=== PATIENT | female | born 2000 | race Caucasian/White ===

== ENCOUNTER 2020-10-27 21:20 | Emergency (ER) | payer OTHER ==
[~2020-10-27] VITALS: Ht 157.5 cm; Wt 52.5 kg
--- NOTE | 2020-10-27 21:38 | NUR ---
RIGHT LOWER BACK PAIN
[2020-10-27] MEDS ORDERED: KETOROLAC 30 MG/1 ML ONE (21:55)
[2020-10-27] MEDS ORDERED: KETOROLAC 30 MG/1 ML IVPush ONE (22:00)
[2020-10-27] MEDS ORDERED: SODIUM CHLORIDE FLUSH 10ML SYR IVF ONE (22:00)
[2020-10-27 22:30] LABS: BASOPHILS % (AUTO) 1 % (0-1); EOSINOPHILS % (AUTO) 2 % (1-7); LYMPHOCYTES % (AUTO) 32 % (22-44); MEAN CORPUSCULAR HGB CONC 33.9 g/dL (32.4-35.8); MEAN PLATELET VOLUME 8.7 fL (7.4-10.4); MONOCYTES % (AUTO) 9 % (2-9); NEUTROPHILS % (AUTO) 56 % (42-75); PLATELET COUNT 228 x10^3/uL (130-400); RED BLOOD COUNT 4.81 x10^6/uL (3.82-5.3); RED CELL DISTRIBUTION WIDTH 13.2 % (9.6-15.2)
[2020-10-27 22:31] LABS: MD NO
[2020-10-27 22:33] LABS: MICROSCOPIC INDICATED
[2020-10-27 22:35] LABS: ALANINE AMINOTRANSFERASE 22 U/L (12-78); ALBUMIN 4.3 g/dL (3.4-5.0); ANION GAP 4 mmol/L (5-15); CALCIUM 9.3 mg/dL (8.5-10.1); CHLORIDE 107 mmol/L (98-107); CREATININE 0.99 mg/dL (0.55-1.02)
[2020-10-27 22:40] LABS: ALKALINE PHOSPHATASE 70 U/L (45-117); BILIRUBIN,TOTAL 0.3 mg/dL (0.2-1.0); TOTAL PROTEIN 8.1 g/dL (6.4-8.2)
--- NOTE | 2020-10-27 22:51 | NUR ---
PT BACK FROM CT STATES IS STILL IN PAIN HAS GONE DOWN A LITTLE. 01/23.
--- NOTE | 2020-10-27 22:54 | NUR ---
PT REQUEST EMESIS BAG, FEELING NAUSEOUS.
[2020-10-27] MEDS ORDERED: ONDANSETRON 2MG/ML, 2ML ONE (22:57)
[2020-10-27] MEDS ORDERED: ONDANSETRON 2MG/ML, 2ML IVPush ONE (23:00)
[2020-10-27] MEDS ORDERED: MORPHINE SULFATE 4 MG/ML, 1ML ONE (23:14)
--- NOTE | 2020-10-27 23:24 | NUR ---
PT STATES "YADAV AFTER MORPHINE BUT FEELS BETTER NOW".
[2020-10-27] MEDS ORDERED: MORPHINE SULFATE 4 MG/ML, 1ML IVPush PRN (23:30)
--- NOTE | 2020-10-27 23:41 | NUR ---
PT RESTING IN BED. BILATERAL CHEST RISE AND FALL. HOOKED UP TO ALL MONITORING EQUIPMENT. RAILS UP. CALL [employer] WITHING REACH.
[2020-10-28 01:02] VITALS: BP 108/76
--- NOTE | 2020-10-28 01:15 | NUR ---
Patient given discharge instructions and they have confirmed that they understand the instructions. Patient ambulatory with steady gait.
== END 2020-10-28 01:18 | disposition home or self-care (01) ==
LOC: ED 22:38
DX: N13.2 Hydronephrosis with renal and ureteral calculous obstruction (principal); M54.5 Low back pain; R11.0 Nausea; R10.9 Unspecified abdominal pain; F17.200 Nicotine dependence, unspecified, uncomplicated
CPT/HCPCS: 36415; 74018; 74176; 80053; 81001; 84703; 85025; 87086; 96374; 96375; 99285; J1885; J2270; J2405